=== PATIENT | female | born 1995 | race Caucasian/White ===

== ENCOUNTER 2016-08-10 21:38 | Emergency (ER) | payer SELFPAY ==
[~2016-08-10] VITALS: Ht 152.4 cm; Wt 71.7 kg
[~2016-08-10 21:38] MED LIST: AMOX-842 PO
[2016-08-10 22:26] VITALS: BP 121/75
--- NOTE | 2016-08-11 00:29 | NUR ---
Patient to bed 08.
--- NOTE | 2016-08-11 00:32 | NUR ---
21 Y/O F W/C/O RASH ALL OVER BODY SINCE 2 PM. TAKING ABX SINCE LAST WEDNESDAY. NO S/S OF RESP DISTRESS NOTED AT THE MOMENT. SAT 99 % IN RA. ER MADE AWARE.
[2016-08-11] MEDS ORDERED: diphenhydrAMINE 50 MG CAP PO ONE (00:40)
[2016-08-11] MEDS ORDERED: methylPREDNISolone SS 125 MG in WATER STERILE 2 ML IM ONE (00:40)
[2016-08-11 01:04] VITALS: BP 116/72
--- NOTE | 2016-08-11 01:04 | NUR ---
Patient discharged with v/s stable. Written and verbal after care instructions given and explained. Patient alert, oriented and verbalized understanding of instructions. Ambulatory with steady gait. All questions addressed prior to discharge. ID band removed. Patient advised to follow up with PMD OR RETURN TO ER IF CONDITION WORSENS. Rx of BENADRYL AND PREDNISONE given. Patient educated on indication of medication including possible reaction and side effects. Opportunity to ask questions provided and answered.
== END 2016-08-11 01:04 | disposition home or self-care (01) ==
LOC: MED 21:38
DX: L25.9 Unspecified contact dermatitis, unspecified cause (principal)
CPT/HCPCS: 96372; 99283; J2930; Q0163

== ENCOUNTER 2019-11-29 05:55 | Emergency (ER) | payer OTHER ==
[~2019-11-29] VITALS: Ht 152.4 cm; Wt 79.4 kg
[2019-11-29 06:14] VITALS: BP 133/90
--- NOTE | 2019-11-29 06:20 | NUR ---
PT AMBULATED TO BED 10 WITH STEADY GAIT
--- NOTE | 2019-11-29 06:21 | NUR ---
PT PROVIDED URINE SAMPLE AND LEFT FOR LAB TO PICKUP
[2019-11-29 06:29] VITALS: BP 133/90
--- NOTE | 2019-11-29 06:34 | NUR ---
24 Y/O FEMALE C/O 2 X DAYS BURNING/ITCHY WHEN URINATES; BILATERAL BACK PAIN; PAIN 9/10; PT TOOK 1GRAM TYLENOL AT 5AM WITH RELIEF PMH: DELIVERED BABY 4 MONTHS AGO VAGINAL ALLERGY: MACROBID/CLINDOMYCIN/PREDNISONE
[2019-11-29] MEDS ORDERED: IBUPROFEN 600 MG TAB PO ONE (06:50)
[2019-11-29] MEDS ORDERED: cefTRIAXone 1,000 MG in LIDOCAINE MPF 1% 2.1 ML IM ONE (06:50)
[2019-11-29] MEDS ORDERED: cefTRIAXone 1,000 MG VIAL ONE (06:54)
[2019-11-29] MEDS ORDERED: LIDOCAINE MPF 1% 5 ML ONE (06:55)
--- NOTE | 2019-11-29 07:16 | NUR ---
Pt report given to FERNANDO SORTO. Transfer of care at this time.
== END 2019-11-29 07:17 | disposition home or self-care (01) ==
LOC: MED 05:55
DX: A41.9 Sepsis, unspecified organism (principal); N18.9 Chronic kidney disease, unspecified
CPT/HCPCS: 81025; 96372; 99283; J0696; J2001; 81002

== ENCOUNTER 2021-09-05 18:21 | Emergency (ER) | payer OTHER ==
[~2021-09-05] VITALS: Ht 152.4 cm; Wt 79.4 kg
[~2021-09-05 18:21] MED LIST changes: +AMOX-1230 PO; -AMOX-842 PO
[2021-09-05 18:46] VITALS: BP 108/65
--- NOTE | 2021-09-05 18:59 | NUR ---
Patient ambulated to bed 12 with steady/even gait.
--- NOTE | 2021-09-05 19:19 | NUR ---
26 YO F BIB SELF WOTH C/C OF 6/10 Painful urination and lower abd cramping x2days. pt reports increased frequency and urgency. pt states after urinating she still feels the need to go and increased bladder pressure. pt states she is 15 wks . denies vaginal bleeding. +n/v xyesterdat, denies n/v at this moment. states she took tylenol yesterday with some relief. denies hx and rx allergy:pcn and macrobid
[2021-09-05 19:59] LABS: BASOPHILS % (AUTO) 0.3 % (0.0-2.0); EOSINOPHILS # (AUTO) 0.2 K/uL (0-0.4); EOSINOPHILS % (AUTO) 1.5 % (0.0-4.0); HEMOGLOBIN 12.8 g/dL (12.0-16.0); LYMPHOCYTES % (AUTO) 29.3 % (20.5-51.1); MEAN CORPUSCULAR HEMOGLOBIN 30 pg (27-31); MEAN CORPUSCULAR HGB CONC 34 g/dL (33-37); MEAN CORPUSCULAR VOLUME 88.2 fL (80-94); MONOCYTES # (AUTO) 0.5 K/uL (0.8-1.0); MONOCYTES % (AUTO) 5.2 % (1.7-9.3); NEUTROPHILS # (AUTO) 6.6 K/uL (1.8-7.7); NEUTROPHILS % (AUTO) 63.7 % (42.2-75.2); PLATELET COUNT (AUTO) 251 K/uL (140-450); RED CELL DISTRIBUTION WIDTH 13.3 % (11.6-13.7); WHITE BLOOD COUNT (AUTO) 10.3 K/uL (4.8-10.8)
[2021-09-05] MEDS ORDERED: cefTRIAXone 1,000 MG VIAL ONE (20:12)
[2021-09-05 20:22] LABS: BILIRUBIN,URINE NEGATIVE (NEGATIVE); BLOOD, URINE NEGATIVE (NEGATIVE); LEUKOCYTE ESTERASE ,URINE TRACE (NEGATIVE); NITRITE, URINE NEGATIVE (NEGATIVE); UGLUCOSE NEGATIVE (NEGATIVE)
[2021-09-05 20:26] LABS: APPEARANCE,URINE HAZY (CLEAR); COLOR,URINE YELLOW (YELLOW)
[2021-09-05 20:33] LABS: ALBUMIN 3.1 g/dL (3.4-5.0); ANION GAP 14.9 (8-16); CARBON DIOXIDE 22.2 mmol/L (21-32); CREATININE 0.5 mg/dL (0.6-1.3); PHOSPHORUS 3.3 mg/dL (2.5-4.9); POTASSIUM 3.1 mmol/L (3.5-5.1); TOTAL BILIRUBIN 0.1 mg/dL (0.0-1.0)
[2021-09-05 20:38] LABS: RBC,URINE NONE SEEN /HPF (0-5); WBC,URINE 0-5 /HPF (0-5)
[2021-09-05] MEDS ORDERED: POTASSIUM CHLORIDE 10 MEQ TABER PO ONE (20:40)
[2021-09-05] MEDS ORDERED: CEPH-588 PO (21:14)
[2021-09-05 21:30] VITALS: BP 108/65
== END 2021-09-05 21:30 | disposition home or self-care (01) ==
LOC: MED 18:21
DX: O23.12 Infections of bladder in pregnancy, second trimester (principal); Z88.0 Allergy status to penicillin; Z88.8 Allergy status to other drugs, medicaments and biological substances; Z3A.15 15 weeks gestation of pregnancy; Z79.899 Other long term (current) drug therapy
CPT/HCPCS: 36415; 76770; 80053; 81001; 81025; 83690; 83735; 84100; 85025; 87086; 96365; 99284; J0696; Q0092

== ENCOUNTER 2022-01-01 22:10 | Observation (INO) | payer OTHER ==
[~2022-01-01] VITALS: Ht 152.4 cm; Wt 81.6 kg
[~2022-01-01 22:10] MED LIST changes: +CEPH-588 PO
[2022-01-01] MEDS ORDERED: PNV91TAB8 PO (23:50)
[2022-01-01] MEDS ORDERED: FERR-212 PO (23:51)
[2022-01-01] MEDS ORDERED: ASCO500T95 PO (23:52)
== END 2022-01-01 23:59 | disposition home or self-care (01) ==
LOC: MLD 22:10 → MFCC 22:52
PROVIDERS: ADMIT Obstetrics & Gynecology; ATTEND Obstetrics & Gynecology
DX: O99.891 Other specified diseases and conditions complicating pregnancy (principal); Z20.822 Contact with and (suspected) exposure to COVID-19; M79.10 Myalgia, unspecified site; O26.813 Pregnancy related exhaustion and fatigue, third trimester; Z3A.36 36 weeks gestation of pregnancy
CPT/HCPCS: 87426; G0378; 59025; 81000

== ENCOUNTER 2022-08-17 18:33 | Emergency (ER) | payer OTHER ==
[~2022-08-17 18:33] MED LIST changes: -AMOX-1230 PO; +ASCO500T95 PO; -CEPH-588 PO; +FERR-212 PO; +PNV91TAB8 PO
--- NOTE | 2022-08-17 19:39 | NUR ---
Called to triage no response
--- NOTE | 2022-08-17 20:10 | NUR ---
Called to triage no response
--- NOTE | 2022-08-17 20:46 | NUR ---
Called to triage no response
--- NOTE | 2022-08-17 20:47 | NUR ---
Pt left without being seen
== END 2022-08-17 20:48 | disposition left against medical advice (07) ==
LOC: MED 18:33
DX: Z53.21 Procedure and treatment not carried out due to patient leaving prior to being seen by health care provider (principal)

== ENCOUNTER 2022-12-24 15:02 | Emergency (ER) | payer OTHER ==
[~2022-12-24] VITALS: Ht 152.4 cm; Wt 80.1 kg
[2022-12-24 15:13] VITALS: BP 118/45; PULSE 79; RESP 20; TEMP 98.5; O2SAT 100
[2022-12-24 16:21] LABS: BASOPHILS % (AUTO) 0.4 % (0.0-2.0); EOSINOPHILS # (AUTO) 0.2 K/uL (0-0.4); EOSINOPHILS % (AUTO) 1.8 % (0.0-4.0); HEMATOCRIT 40.7 % (36-48); HEMOGLOBIN 13.6 g/dL (12.0-16.0); LYMPHOCYTES # (AUTO) 2.7 K/uL (2.5-16.5); LYMPHOCYTES % (AUTO) 28.6 % (20.5-51.1); MEAN CORPUSCULAR HEMOGLOBIN 30 pg (27-31); MEAN CORPUSCULAR HGB CONC 34 g/dL (33-37); MEAN CORPUSCULAR VOLUME 88.6 fL (80-94); MONOCYTES # (AUTO) 0.6 K/uL (0.8-1.0); MONOCYTES % (AUTO) 6.5 % (1.7-9.3); NEUTROPHILS % (AUTO) 62.7 % (42.2-75.2); PLATELET COUNT (AUTO) 237 K/uL (140-450); RED BLOOD CELL COUNT(AUTO) 4.59 MIL/uL (4.20-5.40); RED CELL DISTRIBUTION WIDTH 12.7 % (11.6-13.7); WHITE BLOOD COUNT (AUTO) 9.5 K/uL (4.8-10.8)
[2022-12-24 16:35] LABS: ALBUMIN 3.8 g/dL (3.4-5.0); ANION GAP 12.8 (8-16); CALCIUM 8.8 mg/dL (8.5-10.1); CREATININE 0.8 mg/dL (0.6-1.3); POTASSIUM 3.8 mmol/L (3.5-5.1); TOTAL BILIRUBIN 0.4 mg/dL (0.0-1.0); TOTAL PROTEIN, SERUM 7.5 g/dL (6.4-8.2)
[2022-12-24 17:04] LABS: BILIRUBIN,URINE NEGATIVE (NEGATIVE); BLOOD, URINE 1+ (NEGATIVE); COLOR,URINE YELLOW (YELLOW); LEUKOCYTE ESTERASE ,URINE 2+ (NEGATIVE); NITRITE, URINE NEGATIVE (NEGATIVE); PROTEIN,URINE NEGATIVE (NEGATIVE); UGLUCOSE NEGATIVE (NEGATIVE); UROBILINOGEN,URINE 0.2 EU/dL (0.2 - 1)
[2022-12-24 17:05] LABS: APPEARANCE,URINE CLOUDY (CLEAR)
[2022-12-24 17:17] LABS: BACTERIA,URINE FEW /HPF (None Seen); MUCUS,URINE 1+ /LPF (None Seen); SQUAMOUS EPITHELIAL CELL,UR 4-10 (MOD) /LPF (0-3 (FEW))
[2022-12-24] MEDS ORDERED: KETOROLAC 30 MG/ML VIAL IM ONE (18:25)
[2022-12-24] MEDS ORDERED: MORPHINE SULFATE 4 MG/ML SYR IVP ONE (18:55)
[2022-12-24] MEDS ORDERED: ONDANSETRON 4 MG/2 ML VIAL IVP ONE (18:55)
[2022-12-24] MEDS ORDERED: KETOROLAC 15 MG/ML VIAL IVP ONE (18:55)
[2022-12-24] MEDS ORDERED: LORazepam 1 MG TAB PO ONE (20:15)
[2022-12-24] MEDS ORDERED: IBUP-2213 PO (20:27)
[2022-12-24] MEDS ORDERED: ONDA-188 SL (20:27)
[2022-12-24] MEDS ORDERED: CIPR250T6 PO (20:28)
[2022-12-24 20:56] VITALS: BP 127/68; PULSE 78; RESP 16; TEMP 98.4; O2SAT 100
== END 2022-12-24 20:56 | disposition home or self-care (01) ==
LOC: MED 15:02
DX: N39.0 Urinary tract infection, site not specified (principal); K80.50 Calculus of bile duct without cholangitis or cholecystitis without obstruction; E11.9 Type 2 diabetes mellitus without complications; Z79.899 Other long term (current) drug therapy; Z79.2 Long term (current) use of antibiotics; Z79.1 Long term (current) use of non-steroidal anti-inflammatories (NSAID); Z88.0 Allergy status to penicillin; Z88.1 Allergy status to other antibiotic agents; Z88.2 Allergy status to sulfonamides
CPT/HCPCS: 36415; 76705; 80053; 81001; 81025; 83690; 85025; 87086; 96374; 96375; 99285; J1885; J2270; J2405